=== PATIENT | female | born 1935 | race Caucasian/White ===

== ENCOUNTER 2016-07-18 23:01 | Emergency (ER) | payer MEDICARE, OTHER ==
--- NOTE | ~2016-07-18 | ER ---
PATIENT'S NAME: INDRA OLIVA [facility] AGE: 81 Y [address] ROOM: [place] [address] LOCATION: [facility] ADMIT DATE: 07/18/2016 ER/Outpatient Report DISCHARGE DATE: FAMILY PHYSICIAN: Physician, Unknown ATTENDING PHYSICIAN: Dalton Cheng Admission date and time are documented on the medical record. I saw the patient at 2300 hours. CHIEF COMPLAINT: Ground-level fall. HISTORY OF PRESENT ILLNESS: This patient is an 81-year-old female who lives at [facility]. She had a ground-level fall. She caught her wrist on the counter, fell, and landed on her buttocks. She has a skin tear to her right forearm. No pain in her pelvis or in her low back. No other injuries. The patient is awake, alert, and responsive on arrival to the emergency room. The patient came in by via ambulance. Brought in by paramedics. HOME MEDICATIONS: See attached medication list. ALLERGIES: CODEINE, SULFA, THIAZIDE, SPIRONOLACTONE, HYDROCHLOROTHIAZIDE, SHELLFISH, FISH, AND WHOLE EGGS. SOCIAL HISTORY: Nonsmoker, nondrinker. SIGNIFICANT PAST MEDICAL HISTORY: Hypertension, chronic kidney disease, dementia, depression, edema, and gastroesophageal reflux. OPERATIONS: Unknown. REVIEW OF SYSTEMS: All systems reviewed by me are negative with the exception of those discussed in the history of present illness. PHYSICAL EXAMINATION: VITAL SIGNS: Temperature 98.6, tympanic, pulse 68, respirations 16, blood pressure 188/76, and O2 sat on room air is 98%. HEAD: Normocephalic. No abrasion, contusion, laceration, or swelling of the PATIENT'S NAME: INDRA OLIVA [facility] AGE: 81 Y [address] ROOM: [place] [address] LOCATION: [facility] ADMIT DATE: 07/18/2016 ER/Outpatient Report DISCHARGE DATE: FAMILY PHYSICIAN: Physician, Unknown ATTENDING PHYSICIAN: Dalton Cheng scalp or face. EYES: Extraocular muscles are intact. PERRL. EARS, NOSE, AND THROAT: Clear. Mucous membranes moist. NECK: Negative. SPINE: Negative. LUNGS: Clear. HEART: Regular. Pulses palpable. ABDOMEN: Flat, soft, nondistended, nontender. Good bowel tones. PELVIS: Stable. EXTREMITIES: The patient has about a 5-6 cm skin tear right ventral midforearm. I did go ahead and cleanse the area with normal saline. I approximated the skin edges and glued them closed. The patient tolerated the procedure well. No other injuries. She has multiple bruises of her extremities. These mostly are all old. NEURO: Intact. SKIN: Clear other than the skin tear. LABORATORY DATA: X-ray of the lumbar spine shows scoliosis, degenerative changes, no acute fracture noted. She did have some spondylolisthesis of L3 on L4. Pelvis x- ray showed no fracture. We will review all plain films with the radiologist. IMPRESSION: Ground-level fall with about 5-6 cm dorsal skin tear in the midright forearm closed with wound adhesive. There was no evidence of acute fracture of the lumbosacral spine or pelvis. PLAN: The patient's wound was cleansed and dressed. The patient dismissed home to [place]. Continue all present home medications and care. Follow up with personal physician as needed. MD SULEMAN RUSHING/modl /[id number] d: 07/19/16 0130 t: 07/19/16 0342, OUTPATIENT REPORT
== END 2016-07-19 01:22 | disposition disaster alternative care site (69) ==
LOC: GACC 23:01
PROC: 0HQDXZZ Repair Right Lower Arm Skin, External Approach (ICD-10-PCS; principal; 2016-07-18)
DX: S51.811A Laceration without foreign body of right forearm, initial encounter (principal); I12.9 Hypertensive chronic kidney disease with stage 1 through stage 4 chronic kidney disease, or unspecified chronic kidney disease; N18.9 Chronic kidney disease, unspecified; F32.9 Major depressive disorder, single episode, unspecified; K21.9 Gastro-esophageal reflux disease without esophagitis; Z88.2 Allergy status to sulfonamides; Z88.8 Allergy status to other drugs, medicaments and biological substances; Z91.013 Allergy to seafood; Z79.82 Long term (current) use of aspirin; Z79.899 Other long term (current) drug therapy; W01.0XXA Fall on same level from slipping, tripping and stumbling without subsequent striking against object, initial encounter

== ENCOUNTER → 2016-07-18 | Outpatient (CLI) | payer MEDICARE, OTHER ==
[~2016-07-18] MED LIST: ALOE VESTA141 GM TOP; AMOXICILLIN500 MG PO; ARTIFICIAL TEAR15 ML OPHTH; ASPIRIN LO-DOSE81 MG PO; BIAXIN250 MG PO; CETAPHIL GENTL TOP; COLCHICINE0.6 MG PO; ENSURE CLEAR PO; HYDROCODON-ACE1 EAC4 PO; HYDROCORT 1/2 %30 GM TOP; IMODIUM2 MG PO; LASIX40 MG PO; LEVOTHROID(SYN75 MCG PO; LOTRIMIN AF24 GM TOP; MILK OF MA400 MG/5 M PO; MIRALAX17 GM PO; NORVASC2.5 MG PO; PRILOSEC20 MG PO; PRISTIQ ER100 MG PO; RENVELA800 MG PO; ROBITUSSIN DM120 ML PO; TRIACET 0.1 CRE15 GM TOP; TYLENOL325 MG PO; ZYLOPRIM300 MG PO; ZYPREXA5 MG PO
== END | disposition disaster alternative care site (69) ==
LOC: GAMB 22:41
DX: S59.911A Unspecified injury of right forearm, initial encounter (principal); S51.811A Laceration without foreign body of right forearm, initial encounter; I10 Essential (primary) hypertension; N18.2 Chronic kidney disease, stage 2 (mild); F03.90 Unspecified dementia, unspecified severity, without behavioral disturbance, psychotic disturbance, mood disturbance, and anxiety; Z79.82 Long term (current) use of aspirin; Z79.899 Other long term (current) drug therapy; Z88.1 Allergy status to other antibiotic agents; Z88.6 Allergy status to analgesic agent; Z88.8 Allergy status to other drugs, medicaments and biological substances; W19.XXXA Unspecified fall, initial encounter
CPT/HCPCS: A0425; A0429

== ENCOUNTER 2016-09-23 10:29 | Inpatient (IN) | payer MEDICARE, OTHER, MEDICAID ==
[~2016-09-23] VITALS: Ht 157.5 cm; Wt 60.9 kg
--- NOTE | ~2016-09-23 | ER ---
PATIENT'S NAME: INDRA OLIVA [facility] AGE: 81 Y [address] ROOM: [place] [address] LOCATION: [facility] ADMIT DATE: 09/23/2016 ER/Outpatient Report DISCHARGE DATE: FAMILY PHYSICIAN: Misael Land MD ATTENDING PHYSICIAN: Dylan Plascencia Admission date and time documented on the medical record. I saw the patient at 1045 hours. CHIEF COMPLAINT: Ground-level fall. HISTORY OF PRESENT ILLNESS: This patient is an 81-year-old female who is a resident of [facility]. She had a ground level fall at 0940 hours injuring her left upper leg. The patient was brought to the emergency room by paramedics via ambulance for evaluation. The patient is in Roca's traction. The patient is awake. 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 She denies any head or neck pain. No back pain. No back or spine pain. No chest pain or shortness of breath. No abdominal pain. She denies being nauseated or vomiting or have any diarrhea. She does not hurt any place except for left upper leg. She does have a history of dementia, depression, and anxiety. Does have a history of hypothyroidism, but no diabetes. No history of CVA, TIA, or seizure disorder. She has chronic kidney disease and hypertension. No recent coughs, colds, or flus. HOME MEDICATIONS: See attached medication list. ALLERGIES: CODEINE, SULFA, HYDROCHLOROTHIAZIDE, SPIRONOLACTONE, SHELLFISH, FISH, AND EGGS. SOCIAL HISTORY: Nonsmoker and nondrinker. SIGNIFICANT PAST MEDICAL HISTORY: Hypertension, chronic kidney disease, dementia, depression, anxiety, gastroesophageal reflux, pneumonia, recurrent urinary tract infections, dyslipidemia, hypothyroidism, and right shoulder dislocation. OPERATIONS: AV fistula placement, closed reduction of right shoulder dislocation, cystoscopy with stent placement, transurethral resection of bladder lesion, PATIENT'S NAME: INDRA OLIVA [facility] AGE: 81 Y [address] ROOM: [place] [address] LOCATION: [facility] ADMIT DATE: 09/23/2016 ER/Outpatient Report DISCHARGE DATE: FAMILY PHYSICIAN: Misael Land MD ATTENDING PHYSICIAN: Dylan Plascencia breast biopsy, bilateral total knee arthroplasty, and bilateral cataract extraction. REVIEW OF SYSTEMS: All systems reviewed by me are negative with the exception of those discussed in the history of present illness. PHYSICAL EXAMINATION: VITAL SIGNS: Temperature 98.2, orally; pulse 82, regular; respirations 20; blood pressure 187/75; and O2 saturation on room air is 96%. HEENT: Head: Normocephalic. No abrasion, contusion, laceration, swelling of scalp or face. Eyes: Pupils equal, round, and reactive to light. Ears, Nose, Throat: Clear. Mucous membranes moist. NECK: Negative. SPINE: Negative. LUNGS: Clear. Good air flow. No rales, rhonchi, or wheezes. HEART: Regular. Pulses are palpable. ABDOMEN: Flat, soft, nondistended, and nontender. Good bowel tones. No organomegaly or abnormal masses palpable. EXTREMITIES: Moves all 4 extremities except for her left leg. She is in Roca's traction. No open wounds. Does have some shortening of the left lower extremity. NEUROVASCULAR: Intact. The patient is demented. She does not know where she is or what time or what the date is. She does not know her age or date. SKIN: Clear. IMAGING DATA: Chest x-ray showed no acute infiltrate or changes. Pelvic x-ray showed no fracture. Left femur shows a distal comminuted spiral fracture of the left femur. We will review x-ray with Radiology and Orthopedic Surgery. IMPRESSION: 1. Ground-level fall with a distal left femur fracture. 2. Hypertension. 3. Dementia. 4. Chronic kidney disease. 5. Depression and anxiety. 6. Dyslipidemia. 7. Hypothyroidism. 8. History of recurrent urinary tract infections. PLAN: Discussed the patient with Dr. Plascencia, orthopedic surgeon. The patient will be admitted to the hospital by Hospitalist for further operative intervention, correction, and repair per Dr. Plascencia. PATIENT'S NAME: INDRA OLIVA [facility] AGE: 81 Y [address] ROOM: [id number] [place] [address] LOCATION: [facility] ADMIT DATE: 09/23/2016 ER/Outpatient Report DISCHARGE DATE: FAMILY PHYSICIAN: Misael Land MD ATTENDING PHYSICIAN: Dylan Plascencia MD SULEMAN RUSHING/haroon /[id number] d: 09/23/16 1856 t: 09/24/16 0610, OUTPATIENT REPORT
--- NOTE | ~2016-09-23 | DS ---
PATIENT'S NAME: INDRA OLIVA [facility] AGE: 81 Y [address] ROOM: [address] [place], [place] [address] LOCATION: [facility] ADMIT DATE: 09/23/2016 Discharge Summary DISCHARGE DATE: 09/30/2016 FAMILY PHYSICIAN: Misael Land MD ATTENDING PHYSICIAN: Dylan Plascencia ADMITTING DIAGNOSIS: Supracondylar left femur fracture above a total knee replacement and below a cemented total hip arthroplasty. PROCEDURE: ORIF with a lateral plate. HOSPITAL COURSE: The patient was admitted after a fall. She was admitted through the ER after being unable to bear weight on her left leg. X-rays revealed a supracondylar femur fracture above a total knee arthroplasty and below a total hip arthroplasty. She was admitted to the Hospitalist Service for preoperative risk evaluation and medical management. When the patient was deemed stable, she was taken to the operating room, where the aforementioned ORIF was performed. Preoperatively, she was typed, crossed, and transfused 1 unit of packed red blood cells for a hemoglobin of 6.7. She was also found to have a urinary tract infection. This was treated with doxycycline 100 mg p.o. b.i.d. for 3 days. Her comorbidities include stage 4 chronic kidney disease, dementia with agitation. Postop day #1, she was afebrile, neurovascular was intact to the operative left foot. She received a 2nd unit of packed red blood cells. Postop day #2, hemoglobin was 7.6 after transfusion. Keep the knee immobilizer on while up and while resting. Urine cultures were positive for MRSA. Postop day #3, wounds were healing nicely, C[employer] was intact to the operative foot. She continued to be moderately demented; although, fairly cooperative. She had some mild hyponatremia that was treated with fluids. Hernandez was taken out on postop day #3. She continued on her doxycycline for her MRSA urinary tract infection. Hemoglobin on postop day #4 was in the 9.0 and arrangements were made for the patient to be transferred to senior care. She was placed on MRSA clearance protocol and transferred to [facility] on postop day #6. DISCHARGE INSTRUCTIONS: Nonweightbearing, left leg, continue prehospitalization medication regimen, and follow up with myself in 3 weeks, bandar out postop day #10, MRSA swab on 10/04/2016, if negative repeat on 10/09/2016, daily dressing changes, 4x4, gauze, and tape. DEMTERIO NIX FOR MD BONIFACIO CARRILLO/haroon PATIENT'S NAME: INDRA OLIVA [facility] AGE: 81 Y [address] ROOM: [place] [address] LOCATION: [facility] ADMIT DATE: 09/23/2016 Discharge Summary DISCHARGE DATE: 09/30/2016 FAMILY PHYSICIAN: Misael Land MD ATTENDING PHYSICIAN: Dylan Plascencia /[id number] d: 10/05/16 0429 t: 10/13/16 1021, DISCHARGE SUMMARY
--- NOTE | ~2016-09-23 | CON ---
[facility] 81 Y [address] ROOM: [place] [id number] LOCATION: G3 ADMIT DATE: 09/23/2016 Consultation DISCHARGE DATE: FAMILY PHYSICIAN: Misael Land MD ATTENDING PHYSICIAN: Dylan Plascencia DATE OF CONSULTATION: 09/23/2016 REFERRING PHYSICIAN: Livan Snow MD The patient was seen and examined on 09/23/2016. CHIEF COMPLAINT: Ground-level fall with supracondylar fracture of left femur above a total knee and below a hip arthroplasty. HISTORY OF PRESENT ILLNESS: This 81-year-old female with dementia fell at [facility]. She complained of pain. X-rays in the emergency room, after being brought in by ambulance, demonstrate supracondylar fracture of the left femur. There were no other injuries. No loss of consciousness, neck pain, blackout spells, or dizziness. She has no history of CVA, TIA, or seizures. No recent infections. ALLERGIES: CODEINE, SULFA, HYDROCHLOROTHIAZIDE, SPIRONOLACTONE, SHELLFISH, AND EGGS. SOCIAL HISTORY: No smoking or alcohol use. PAST MEDICAL HISTORY: Hypertension, chronic kidney disease, dementia, depression, anxiety, gastroesophageal reflux, pneumonia, urinary tract infections, and dyslipidemia. OPERATIONS: AV fistula, closed reduction of right shoulder, cystoscopy with stent placement, resection of bladder lesion, breast biopsy, bilateral total knee arthroplasties, and right hip arthroplasty. REVIEW OF SYSTEMS: Poor memory. No chest pain or trouble breathing. Constipation, but no nausea or vomiting. No dysuria, hematuria, or hesitancy. Progressive deterioration in mental status with loss of memory. No skin changes or malaise. No weight loss or gain. PAT[facility] AGE: 81 Y [address] ROOM: [address] [address] LOCATION: [facility] ADMIT DATE: 09/23/2016 Consultation DISCHARGE DATE: FAMILY PHYSICIAN: Misael Land MD ATTENDING PHYSICIAN: Dylan Plascencia PHYSICAL EXAMINATION: GENERAL: She is confused. VITAL SIGNS: Temperature is 98, pulse 82 and regular, respirations 18, blood pressure 184/74, and O2 saturation is 96% on room air. HEENT: Atraumatic, normocephalic. PERRL, EOMI. TMs clear. Throat clear. NECK: Supple and nontender. SPINE: Nontender. CHEST: Clear to auscultation. No rales. HEART: Regular rhythm. ABDOMEN: Soft and nontender without masses. Good bowel sounds. EXTREMITIES: Moves all 4 extremities except for her left leg. No pain in the right leg or right arm. She is tender about the left distal femur. She is able to dorsi and plantarflex her toes. Pulses are intact bilaterally. No edema. SKIN: Intact. IMAGING STUDIES: Left femur shows a supracondylar fracture, spiral fracture of the left femur with some displacement. IMPRESSION: 1. Supracondylar fracture, left femur, from ground-level fall. 2. Hypertension. 3. Dementia. 4. Chronic kidney disease. 5. Depression and anxiety. 6. Dyslipidemia. 7. Hypothyroidism. 8. History of urinary tract infections. PLAN: Preoperative medical clearance followed by ORIF of supracondylar fracture of left femur above a total knee and below a total hip. Plate and screws, possibly cables will be used. I discussed details of the surgical procedure, risks, benefits, and alternatives, emphasizing anesthetic, neurovascular, and infectious complications. The patient and family understand and desire to proceed with surgery as planned. MD JORJE DAY/haroon PATIENT'S NAME: INDRA OLIVA [facility] AGE: 81 Y [address] ROOM: [place] [address] LOCATION: [facility] ADMIT DATE: 09/23/2016 Consultation DISCHARGE DATE: FAMILY PHYSICIAN: Misael Land MD ATTENDING PHYSICIAN: Dylan Plascencia /[id number] d: 09/24/16 1221 t: 09/24/161930, CONSULTATION REPORT
--- NOTE | ~2016-09-23 | HP ---
PATIENT'S NAME: INDRA OLIVA [facility] AGE: 81 Y [address] ROOM: [address] [address] LOCATION: G3 ADMIT DATE: 09/23/2016 History & Physical DISCHARGE DATE: FAMILY PHYSICIAN: Misael Land MD ATTENDING PHYSICIAN: Dylan Plascencia DATE OF SERVICE: 09/23/2016 CHIEF COMPLAINT/REASON FOR CONSULTATION: Preoperative evaluation for left distal femur fracture. HISTORY OF PRESENTING ILLNESS: This 81-year-old white female with previous history of mild dementia, frequent falls, and chronic kidney disease, stage 4, was brought to [facility] today after a fall, which occurred at the nursing facility where she resides. Details of the fall are unclear, but she apparently lost her balance and suffered a ground level fall, falling onto her left side. She had pain and obvious deformity in the left leg. She was brought by ambulance to the emergency room where x-rays demonstrated a distal femur fracture. Dr. Plascencia consulted and recommended hospitalization for operative management. On my evaluation, she is awake, lying in bed, and complains of pain in the left leg. She states it is bearable as long as it is not moved. She does complain of a little bit of stiffness in her neck but denies monik pain. She does recall the fall but does not think that she injured anything else. She denies headache, pain, denies dizziness, or lightheadedness. She denies chest pain, palpitations, racing heartbeat, or abdominal pain. No significant shortness of breath or orthopnea. She has been eating and drinking normally as of late. She can not recall the last time that she ate, however. She thinks that her stools have been regular. Denies dysuria or urgency but does have urinary incontinence. She denies numbness or tingling in her extremities or any associated physical or constitutional complaints. ALLERGIES: SEAFOOD. ILLNESSES: 1. Chronic kidney disease, stage 4-5 (she previously required hemodialysis but is no longer getting dialysis. 2. Dementia, mild. 3. Essential hypertension. 4. Hyperlipidemia. 5. Hypothyroidism. 6. Recurrent urinary tract infection. PATIENT'S NAME: INDRA OLIVA [facility] AGE: 81 Y [address] ROOM: [address] [address] LOCATION: [facility] ADMIT DATE: 09/23/2016 History & Physical DISCHARGE DATE: FAMILY PHYSICIAN: Misael Land MD ATTENDING PHYSICIAN: Dylan Plascencia CURRENT MEDICATIONS: 1. Acetaminophen 650 mg p.o. q.6 hours p.r.n. pain or fever. 2. Allopurinol 300 mg p.o. daily. 3. Amlodipine 2.5 mg p.o. daily. 4. Aspirin 81 mg p.o. daily. 5. Amoxicillin 2 g p.o. prior to dental procedures. 6. Clarithromycin 250 mg p.o. q.p.m. 7. Lotrimin AF 24 g applied topically daily. 8. Colchicine 0.6 mg p.o. q.7 days. 9. Pristiq ER 100 mg p.o. daily. 10. Lasix 40 mg p.o. b.i.d. 11. Robitussin DM p.r.n. cough. 12. [place] 5/325 one tablet p.o. q.6 hours p.r.n. pain and scheduled t.i.d. 13. Hydrocortisone rectal cream applied topically b.i.d. 14. Levothyroxine 75 mcg p.o. daily. 15. Loperamide 2 mg p.o. daily p.r.n. 16. Milk of magnesia 30 mL p.o. daily p.r.n. 17. Aloe [place] apply topically b.i.d. 18. Ensure 8 ounces t.i.d. 19. Zyprexa 5 mg p.o. q.h.s. 20. Omeprazole 20 mg p.o. daily. 21. Cetaphil topical applied daily. 22. MiraLAX 17 g p.o. daily. 23. Artificial tears t.i.d. 24. Renvela 800 mg p.o. t.i.d. 25. Triamcinolone cream apply topically b.i.d. FAMILY HISTORY: Significant for bright's disease in her father. Mother of congestive heart failure at the age of 91. SOCIAL HISTORY: She is and lives at [facility] in [place]. She is a lifelong nonsmoker. There is no significant history of alcohol use. REVIEW OF SYSTEMS: As per HPI. All other organ systems are reviewed in a limited fashion and are negative. OBJECTIVE: VITAL SIGNS: Temperature 97.6, pulse 83, respirations 16, blood pressure 134/71. GENERAL: She is frail, mildly ill appearing, lying in the bed, in no acute distress. She is oriented to self only. SKIN: Supple, pale, warm, dry. There are no obvious rashes. PATIENT'S NAME: INDRA OLIVA [facility] AGE: 81 Y [address] ROOM: [address] [address] LOCATION: [facility] ADMIT DATE: 09/23/2016 History & Physical DISCHARGE DATE: FAMILY PHYSICIAN: Misael Land MD ATTENDING PHYSICIAN: Dylan Plascencia HEENT: Otherwise, normocephalic. Sclerae nonicteric but mildly injected. Pupils are equal and round, slow to react to light. Extraocular movements appear intact. Nasal turbinates normal in appearance. Oropharynx clear. Mucous membranes are pink and moist. NECK: Supple. No masses or adenopathy. No thyromegaly. No obvious JVD in the horizontal position. CHEST: Chest wall is symmetrical. HEART: Regular with occasional extrasystoles. There is a grade 2/6 systolic ejection murmur. LUNGS: Diminished at the bases, coarse, but no crackles or wheezes are heard. ABDOMEN: Soft, protuberant, nontender. Bowel sounds present. No masses or hepatosplenomegaly. and RECTAL: Not done. EXTREMITIES: Display trace pitting edema. No cyanosis. There is obvious deformity about the left proximal leg with swelling about the mid and distal thigh and obvious shortening deformity on that side. NEUROLOGICAL: Mentation is quite slowed, but there are no focal deficits. LABORATORY AND X-RAY DATA: A 12-lead EKG shows a sinus rhythm without any acute abnormalities. Chest x- ray shows no acute cardiopulmonary abnormalities. CBC showed a white blood cell count 10.4, hemoglobin is 12.2, hematocrit 38.1, platelets 167. Chemistries reveal BUN and creatinine of 57 and 2.5 respectively, sodium and potassium of 142 and 4.3, chloride and CO2 are 106 and 26, calcium is 8.5. AST and ALT of 27 and 24, bilirubin is 0.3. Glucose 125. A proBNP was 939. Cardiac enzymes include a CPK of 95, CK-MB 2.1, troponin I of less than 0.04. Urinalysis shows 5-10 wbc's, 0 to 2 rbc's, few bacteria with many clumps, leukocyte esterase is present, nitrites are negative. ASSESSMENT AND PLAN: 1. Chronic kidney disease, stage 4, stable. Her GFR is 18. Agree with careful IV fluid hydration therapy. We will continue the current rate to total of 1 L and then reduce it to a TKO rate thereafter. We will follow her fluid volume balance closely. Avoid nephrotoxic insults including contrast media, nonsteroidal anti-inflammatory drugs, and LUZ inhibitors. We will repeat renal panel again in the morning. 2. Essential hypertension. Currently adequately controlled. We will monitor the trend and make adjustments as necessary. 3. Gait instability with frequent falls. She is at high risk for recurrent falls. Postoperatively, we will plan restorative care including physical therapy, occupational therapy for strengthening and rehabilitation but observe strict fall precautions. 4. Left distal femur fracture status post fall with angulation and comminution. Provide supportive cares and symptomatic measures. Operative repair is tentatively planned for tomorrow by Dr. Plascencia. I PATIENT'S NAME: INDRA OLIVA [facility] AGE: 81 Y [address] ROOM: [place] [address] LOCATION: [facility] ADMIT DATE: 09/23/2016 History & Physical DISCHARGE DATE: FAMILY PHYSICIAN: Misael Land MD ATTENDING PHYSICIAN: Dylan Plascencia see no absolute contraindications to proceed. We will await postoperative recommendations. 5. Dementia, mild, with agitated features. Historically controlled on the current medication regimen. We will continue her home regimen and make adjustments if necessary. 6. Pyuria with history of recurrent urinary tract infections. She has been maintained on clarithromycin for some period of time. We will obtain a catheterized specimen for culture here and follow up on that when the results are known. 7. Hypothyroidism. Adequately replaced. Continue with her home regimen. 8. Chronic constipation. Encourage a moderately aggressive bowel regimen. 9. Deep venous thrombosis prophylaxis. We will follow the VTE protocol. MD SUDHA JOHNSON/modl /[id number] D: [id number] T: [id number] HISTORY & PHYSICAL
--- NOTE | ~2016-09-23 | OR ---
PATIENT'S NAME: INDRA OLIVA [facility] AGE: 81 Y [address] ROOM: [address] [address] LOCATION: [facility] [place] AD[place] DATE: 09/23/2016 OR/Procedure Report DISCHARGE DATE: FAMILY PHYSICIAN: Misael Land MD ATTENDING PHYSICIAN: Dylan Plascencia SURGEON: Dylan Plascencia MD ADDRESSOGRAPH OPERATOR: DEMETRIO Black. DATE OF PROCEDURE: 09/24/2016 PREOPERATIVE DIAGNOSES: Supracondylar left femur fracture above total knee replacement and below cemented total hip replacement. POSTOPERATIVE DIAGNOSES: Supracondylar left femur fracture above total knee replacement and below cemented total hip replacement. PROCEDURE: Open reduction and internal fixation. ANESTHESIA: General LMA. INDICATIONS: This is an 81-year-old female with chronic kidney disease stage IV, hypertension, dementia, pyuria, hypothyroidism who fell yesterday sustaining a supracondylar left femur fracture. DESCRIPTION OF PROCEDURE: The patient was brought to the operating room and when a satisfactory general anesthesia had been established, her left lower extremity was prepped and draped in an aseptic manner. A straight lateral incision was made over the knee and carried down through the subcutaneous fat. The fascia rochelle was divided and the knee capsule opened and the lateral aspect of her total knee prosthesis and femoral component visualized. The fracture was reduced with traction and a 12 hole periarticular locking plate was pushed up the lateral aspect of the femur. It was centered on the distal femur and a guidepin drilled through the center hole of the distal cluster of the locking holes. The plate was then positioned and the #12 hole was identified and skin incision made and the locking sleeve inserted into the plate and a guidepin drilled into the lateral femur until it struck the stem of the femoral prosthesis. A smooth-headed 4.5 cortical screw was then placed into one of the distal cluster holes to pull the plate onto the bone. An anterior butterfly fragment was reduced to allow the plate to be pulled against the lateral cortex. At screw hole #9, a 4.5 cortical screw was placed percutaneously to hold the plate down against the bone. Reduction appeared to be satisfactory with perhaps a little valgus in it. This was accepted. The distal cluster of screw holes were then drilled, measured, and filled with locking screws. A total of 6 locking screws were placed eventually. Proximally, there were two 12 mm unicortical screws in 12 and 11, a bicortical locking screw in 10, the 4.5 cortical screw in 9, and a locking screw in hole PATIENT'S NAME: INDRA OLIVA [facility] AGE: 81 Y [address] ROOM: [place] [address] LOCATION: [facility] [place] ADMIT DATE: 09/23/2016 OR/Procedure Report DISCHARGE DATE: FAMILY PHYSICIAN: Misael Land MD ATTENDING PHYSICIAN: Dylan Plascencia #7. Position of the implants was checked with a C-arm and accepted. The wound was irrigated copiously with saline and the fascia rochelle and capsule closed with a running 0 Vicryl. The remainder of the closure was by DEMETRIO Rahman, to close the subcutaneous fat with running 2-0 Vicryl and the skin with skin bandar. Dressings and a knee immobilizer were applied. The patient was awakened and sent to the recovery area, having tolerated the procedure well. MD JASIEL CARRILLO/mignonl /[id number] d: 09/25/16 0116 t: 09/29/16 1010, OPERATIVE SUMMARY
--- NOTE | ~2016-09-23 | HP ---
PATIENT'S NAME: INDRA OLIVA [facility] AGE: 81 Y [address] ROOM: [place] [address] LOCATION: [facility] ADMIT DATE: 09/23/2016 History & Physical DISCHARGE DATE: FAMILY PHYSICIAN: Misael Land MD ATTENDING PHYSICIAN: Dylan Plascencia DATE OF SERVICE: CHIEF COMPLAINT/HISTORY OF PRESENT ILLNESS: This is an 81-year-old female who lives in assisted living, here in [place]. She fell yesterday, , 09/23/2016, sustaining an injury to her left lower extremity, specifically her left femur. She has bilateral total knee replacements and has a left hybrid total hip replacement, so the fracture is supracondylar fracture in between the two prostheses. ALLERGIES: SEAFOOD. MEDICATIONS: 1. Tylenol. 2. Allopurinol. 3. Amlodipine. 4. Aspirin. 5. Amoxicillin. 6. Clarithromycin. 7. Lotrimin topically. 8. Colchicine. 9. Pristiq ER. 10. Lasix. 11. Robitussin DM. 12. Riddle 5/325. 13. Hydrocortisone rectal cream. 14. Levothyroxine 75 mcg daily. 15. Loperamide. 16. Milk of magnesia. 17. [place] topically. 18. Ensure. 19. Zyprexa. 20. Omeprazole. 21. Cetaphil topical. 22. MiraLAX. 23. Artificial tears. 24. Renvela. 25. Triamcinolone cream topically. [facility] AGE: 81 Y [address] ROOM: [place] [address] LOCATION: [facility] ADMIT DATE: 09/23/2016 History & Physical DISCHARGE DATE: FAMILY PHYSICIAN: Misael Land MD ATTENDING PHYSICIAN: Dylan Plascencia ILLNESSES: 1. Chronic kidney disease stage 4/5. In the past, she has been on hemodialysis and has been followed by Dr. Land. 2. Dementia. 3. Essential hypertension. 4. Hyperlipidemia. 5. Hypothyroidism. 6. Recurrent urinary tract infections. OPERATIONS: She has had bilateral total knee replacements and a has left total hip replacement. She has also had AV fistula placement in the past, closed reduction of the right shoulder dislocation, cystoscopy with stent placement and transurethral resection of bladder lesion, breast biopsy, and bilateral cataract extraction. FAMILY HISTORY: The patient's father had Bright's disease and her mother of congestive heart failure at the age of 91. HABITS: She denies use or abuse of tobacco or alcohol. REVIEW OF SYSTEMS: PSYCHOLOGIC: History of dementia. LUNGS: Denies shortness of breath. CARDIOVASCULAR: Denies chest pain. ABDOMEN: History of chronic constipation. NEUROPSYCHIATRIC: Dementia. MUSCULOSKELETAL: History of degenerative joint disease and total joint replacements. : History of chronic renal failure, stage 4, no longer on hemodialysis. PHYSICAL EXAMINATION: GENERAL: This is a well-developed, elderly female, who is cooperative and somewhat alert. She does appear to understand her fracture and the disease process and the need for ORIF. VITAL SIGNS: Temperature 97.6, pulse 83, respirations 16, blood pressure 134/74. HEENT: Head is normocephalic and atraumatic. LUNGS: Clear. HEART: Regular. ABDOMEN: Soft, nontender. EXTREMITIES: She has pain on any attempts to move her left lower extremity. PULSES: She has good dorsalis pedis pulse in her left lower extremity. PATIENT'S NAME: INDRA OLIVA [facility] AGE: 81 Y [address] ROOM: [address] [address] LOCATION: [facility] ADMIT DATE: 09/23/2016 History & Physical DISCHARGE DATE: FAMILY PHYSICIAN: Misael Land MD ATTENDING PHYSICIAN: Dylan Plascencia NEUROLOGICAL: She extends her ankle, foot, and toes on request. RADIOGRAPHS: Radiographs show supracondylar femur fracture above, total knee replacement below, hybrid total hip replacement. ASSESSMENT: 1. Periprosthetic left supracondylar femur fracture. 2. Chronic kidney disease. 3. High blood pressure. 4. Dementia. 5. Recurrent urinary tract infections. 6. Hypothyroidism. PLAN: The patient will be taken to the operating room for ORIF of her femur fracture. The procedure, its risks, benefits, and alternatives were discussed with the patient, who appears to understand and requests to proceed. MD JASIEL CARRILLO/modl /[id number]: [id number] T: [id number] HISTORY & PHYSICAL
[2016-09-23 13:00] LABS: BASOPHIL % 0.3 %; EOSINOPHIL # 0.1 K/uL (0.0-0.5); EOSINOPHIL % 1.3 %; HEMATOCRIT 38.1 % (30.0-46.0); HEMOGLOBIN 12.2 g/dL (10.0-15.0); IMMATURE GRANULOCYTE % 0.4 %; LYMPHOCYTE # 0.8 K/uL (0.8-4.0); LYMPHOCYTE % 7.9 %; MCH 33.9 pg (27.0-34.0); MCV 105.8 fl (83.0-98.0); MONOCYTE # 0.5 K/uL (0.0-1.0); MONOCYTE % 5.2 %; MPV 9.9 fl (9.4-12.4); NEUTROPHIL # (ANC) 8.8 K/uL (1.8-7.8); NEUTROPHIL % 84.9 %; NRBC % 0 /100WBC (0-0.00); PLATELET COUNT 167 K/uL (150-450); RDW-CV 13.2 % (11.9-14.6); WBC 10.4 K/uL (4.0-11.0)
[2016-09-23 13:06] LABS: INR - (THERAPEUTIC) 0.95 (0.92-1.07); PTT 23 SECONDS (25-32)
[2016-09-23 13:13] LABS: BILIRUBIN URINE NEGATIVE (NEGATIVE); BLOOD URINE 25 /UL (NEGATIVE); COLOR URINE YELLOW (YELLOW); GLUCOSE URINE NEGATIVE (NEGATIVE); KETONE URINE NEGATIVE (NEGATIVE); LEUKOCYTES URINE 500 /UL (NEGATIVE); NITRITE URINE NEGATIVE (NEGATIVE); PROTEIN URINE 30 mg/dL (NEGATIVE); TURBIDITY URINE 2+ (CLEAR); UROBILINOGEN URINE NORMAL (NORMAL)
[2016-09-23 13:15] LABS: ALBUMIN 3.3 gm/dL (3.5-5.0); ALK PHOS 155 IU/L (33-138); ALT 24 IU/L (12-78); ANION GAP 14.3 (10.0-19.0); AST 27 IU/L (10-40); CALCIUM 8.5 mg/dL (8.5-10.5); CHLORIDE 106 mMol/L (96-110); CO2 26 mMol/L (22-32); CPK 95 IU/L (21-215); CREATININE 2.5 mg/dL (0.5-1.1); ESTIMATED GFR (MDRD EQUATION) 18; POTASSIUM 4.3 mMol/L (3.7-5.1); SODIUM 142 mMol/L (135-145); TOTAL PROTEIN 6.3 g/dL (6.0-8.4)
[2016-09-23 13:19] LABS: BLOOD UREA NITROGEN 57 mg/dL (6-24); TOTAL BILIRUBIN 0.3 mg/dL (0.0-1.5)
[2016-09-23 13:19] LABS: BACTERIA URINE FEW (NEGATIVE); EPITHELIAL URINE 0-2 #/HPF (NEGATIVE); RBC URINE 0-2 #/HPF (NEGATIVE)
[2016-09-23 13:20] LABS: WBC CLUMPS URINE MANY (NEGATIVE)
[2016-09-23] MEDS ORDERED: PRILOSEC20 MG PO (13:46)
[2016-09-23] MEDS ORDERED: LEVOTHROID(SYN75 MCG PO (13:46)
[2016-09-23] MEDS ORDERED: ZYLOPRIM300 MG PO (13:47)
[2016-09-23] MEDS ORDERED: ASPIRIN LO-DOSE81 MG PO (13:47)
[2016-09-23] MEDS ORDERED: PRISTIQ ER100 MG PO (13:47)
[2016-09-23] MEDS ORDERED: NORVASC2.5 MG PO (13:48)
[2016-09-23] MEDS ORDERED: RENVELA800 MG PO (13:48)
[2016-09-23] MEDS ORDERED: LASIX40 MG PO (13:50)
[2016-09-23] MEDS ORDERED: HYDROCODON-ACE1 EAC4 PO ×2 (13:51→14:05)
[2016-09-23] MEDS ORDERED: MIRALAX17 GM PO (13:51)
[2016-09-23] MEDS ORDERED: ARTIFICIAL TEAR15 ML OPHTH (13:52)
[2016-09-23] MEDS ORDERED: CETAPHIL GENTL TOP (13:57)
[2016-09-23] MEDS ORDERED: LOTRIMIN AF24 GM TOP (13:58)
[2016-09-23] MEDS ORDERED: BIAXIN250 MG PO (13:59)
[2016-09-23] MEDS ORDERED: ENSURE CLEAR PO (13:59)
[2016-09-23] MEDS ORDERED: ZYPREXA5 MG PO (14:00)
[2016-09-23] MEDS ORDERED: COLCHICINE0.6 MG PO (14:00)
[2016-09-23] MEDS ORDERED: HYDROCORT 1/2 %30 GM TOP (14:01)
[2016-09-23] MEDS ORDERED: TYLENOL325 MG PO (14:02)
[2016-09-23] MEDS ORDERED: AMOXICILLIN500 MG PO (14:02)
[2016-09-23] MEDS ORDERED: MILK OF MA400 MG/5 M PO (14:03)
[2016-09-23] MEDS ORDERED: IMODIUM2 MG PO (14:03)
[2016-09-23] MEDS ORDERED: TRIACET 0.1 CRE15 GM TOP (14:05)
[2016-09-23] MEDS ORDERED: ALOE VESTA141 GM TOP (14:06)
[2016-09-23] MEDS ORDERED: ROBITUSSIN DM120 ML PO (14:07)
[2016-09-24 04:34] LABS: BASOPHIL % 0.2 %; EOSINOPHIL # 0.1 K/uL (0.0-0.5); EOSINOPHIL % 0.7 %; HEMOGLOBIN 9.6 g/dL (10.0-15.0); IMMATURE GRANULOCYTE % 0.5 %; LYMPHOCYTE # 1.3 K/uL (0.8-4.0); LYMPHOCYTE % 15.6 %; MCH 34.2 pg (27.0-34.0); MCHC 32.9 gm/dL (32.0-36.5); MCV 103.9 fl (83.0-98.0); MONOCYTE # 0.9 K/uL (0.0-1.0); MONOCYTE % 10.8 %; MPV 9.3 fl (9.4-12.4); NEUTROPHIL % 72.2 %; NRBC % 0 /100WBC (0-0.00); PLATELET COUNT 158 K/uL (150-450); RBC 2.81 M/uL (3.00-5.00); RDW-CV 13.2 % (11.9-14.6); WBC 8.3 K/uL (4.0-11.0)
[2016-09-24 04:36] LABS: HEMATOCRIT 29.2 % (30.0-46.0)
[2016-09-24 04:46] LABS: ALBUMIN 2.8 gm/dL (3.5-5.0); CALCIUM 8.1 mg/dL (8.5-10.5); CREATININE 2.2 mg/dL (0.5-1.1); PHOSPHORUS 4.2 mg/dL (2.5-4.9); POTASSIUM 4.5 mMol/L (3.7-5.1)
[2016-09-24 04:58] LABS: ANION GAP 13.5 (10.0-19.0)
[2016-09-25 04:53] LABS: BASOPHIL % 0.2 %; EOSINOPHIL % 0.1 %; IMMATURE GRANULOCYTE # 0.1 K/uL (0.0-0.3); IMMATURE GRANULOCYTE % 0.8 %; LYMPHOCYTE # 1.8 K/uL (0.8-4.0); LYMPHOCYTE % 16.6 %; MCV 106.2 fl (83.0-98.0); MONOCYTE # 1.1 K/uL (0.0-1.0); MONOCYTE % 10.3 %; NEUTROPHIL # (ANC) 7.6 K/uL (1.8-7.8); NRBC % 0.2 /100WBC (0-0.00); PLATELET COUNT 148 K/uL (150-450); RDW-CV 13.8 % (11.9-14.6); WBC 10.6 K/uL (4.0-11.0)
[2016-09-25 04:55] LABS: HEMATOCRIT 20.7 % (30.0-46.0); HEMOGLOBIN 6.7 g/dL (10.0-15.0); MCH 34.4 pg (27.0-34.0); MCHC 32.4 gm/dL (32.0-36.5); RBC 1.95 M/uL (3.00-5.00)
[2016-09-26 06:06] LABS: BASOPHIL % 0.4 %; EOSINOPHIL # 0.2 K/uL (0.0-0.5); EOSINOPHIL % 2.3 %; HEMATOCRIT 24.3 % (30.0-46.0); HEMOGLOBIN 7.6 g/dL (10.0-15.0); IMMATURE GRANULOCYTE % 0.6 %; LYMPHOCYTE # 1.6 K/uL (0.8-4.0); LYMPHOCYTE % 22.3 %; MCH 33.3 pg (27.0-34.0); MCHC 31.3 gm/dL (32.0-36.5); MCV 106.6 fl (83.0-98.0); MONOCYTE # 0.8 K/uL (0.0-1.0); MONOCYTE % 11.6 %; MPV 10.1 fl (9.4-12.4); NEUTROPHIL # (ANC) 4.4 K/uL (1.8-7.8); NEUTROPHIL % 62.8 %; NRBC % 0.4 /100WBC (0-0.00); PLATELET COUNT 118 K/uL (150-450); RBC 2.28 M/uL (3.00-5.00); RDW-CV 16.8 % (11.9-14.6)
[2016-09-26 06:19] LABS: ALBUMIN 2.3 gm/dL (3.5-5.0); ANION GAP 14.9 (10.0-19.0); CREATININE 1.9 mg/dL (0.5-1.1); PHOSPHORUS 3.1 mg/dL (2.5-4.9); POTASSIUM 3.9 mMol/L (3.7-5.1)
[2016-09-27 14:39] LABS: BASOPHIL % 0.3 %; EOSINOPHIL # 0.2 K/uL (0.0-0.5); EOSINOPHIL % 2.6 %; HEMATOCRIT 26.7 % (30.0-46.0); HEMOGLOBIN 8.8 g/dL (10.0-15.0); IMMATURE GRANULOCYTE % 0.3 %; LYMPHOCYTE # 1.6 K/uL (0.8-4.0); LYMPHOCYTE % 21.3 %; MCH 32.5 pg (27.0-34.0); MONOCYTE # 0.8 K/uL (0.0-1.0); MONOCYTE % 10.2 %; MPV 9.9 fl (9.4-12.4); NEUTROPHIL # (ANC) 4.8 K/uL (1.8-7.8); NEUTROPHIL % 65.3 %; NRBC % 0.4 /100WBC (0-0.00); RBC 2.71 M/uL (3.00-5.00); RDW-CV 18.2 % (11.9-14.6); WBC 7.3 K/uL (4.0-11.0)
[2016-09-27 14:43] LABS: MCV 98.5 fl (83.0-98.0); PLATELET COUNT 152 K/uL (150-450)
[2016-09-27 15:11] LABS: ANION GAP 13.7 (10.0-19.0); CALCIUM 8.1 mg/dL (8.5-10.5); CREATININE 1.9 mg/dL (0.5-1.1); MAGNESIUM 2.2 mg/dL (1.8-2.6); POTASSIUM 3.7 mEq/L (3.7-5.1)
[2016-09-28 05:36] LABS: HEMATOCRIT 27.1 % (30.0-46.0)
== END 2016-09-30 11:50 | DRG 481 ==
LOC: GACC 10:29 → G3N 12:02 → GMSU 09-25 17:03
PROVIDERS: Emergency Medicine; Family Medicine; Hospitalist; Physician Assistant; ADMIT Orthopaedic Surgery
PROC: 0QSC04Z Reposition Left Lower Femur with Internal Fixation Device, Open Approach (ICD-10-PCS; principal; 2016-09-24)
PROC: 30233N1 Transfusion of Nonautologous Red Blood Cells into Peripheral Vein, Percutaneous Approach (ICD-10-PCS; 2016-09-25)
PROC: 30233N1 Transfusion of Nonautologous Red Blood Cells into Peripheral Vein, Percutaneous Approach (ICD-10-PCS; 2016-09-26)
DX: S72.452A Displaced supracondylar fracture without intracondylar extension of lower end of left femur, initial encounter for closed fracture (principal); M97.12XA Periprosthetic fracture around internal prosthetic left knee joint, initial encounter; E87.0 Hyperosmolality and hypernatremia; N18.4 Chronic kidney disease, stage 4 (severe); G30.9 Alzheimer's disease, unspecified; F02.81 Dementia in other diseases classified elsewhere, unspecified severity, with behavioral disturbance; N39.0 Urinary tract infection, site not specified; D62 Acute posthemorrhagic anemia; W18.30XA Fall on same level, unspecified, initial encounter; Z96.653 Presence of artificial knee joint, bilateral; Z96.642 Presence of left artificial hip joint; I12.9 Hypertensive chronic kidney disease with stage 1 through stage 4 chronic kidney disease, or unspecified chronic kidney disease; E78.5 Hyperlipidemia, unspecified; E03.9 Hypothyroidism, unspecified; Z79.82 Long term (current) use of aspirin; Z91.81 History of falling; K59.00 Constipation, unspecified; F41.9 Anxiety disorder, unspecified; F32.9 Major depressive disorder, single episode, unspecified; B95.62 Methicillin resistant Staphylococcus aureus infection as the cause of diseases classified elsewhere
CPT/HCPCS: C1713; J0690; J1650; J2270; J3010; J7030; J7050; P9016

== ENCOUNTER → 2016-09-23 | Outpatient (CLI) | payer MEDICARE, OTHER, MEDICAID | END | disposition disaster alternative care site (69) | LOC: GAMB 09:54 | DX: S79.922A Unspecified injury of left thigh, initial encounter (principal); M79.652 Pain in left thigh; F03.90 Unspecified dementia, unspecified severity, without behavioral disturbance, psychotic disturbance, mood disturbance, and anxiety; N18.2 Chronic kidney disease, stage 2 (mild); I10 Essential (primary) hypertension; Z79.82 Long term (current) use of aspirin; Z79.899 Other long term (current) drug therapy; Z79.891 Long term (current) use of opiate analgesic; Z88.6 Allergy status to analgesic agent; Z88.1 Allergy status to other antibiotic agents; Z88.8 Allergy status to other drugs, medicaments and biological substances; W19.XXXA Unspecified fall, initial encounter | CPT/HCPCS: A0425; A0429 ==

== ENCOUNTER → 2016-09-30 | Outpatient (CLI) | payer MEDICARE, OTHER, MEDICAID | END | disposition disaster alternative care site (69) | LOC: GAMB 11:50 | DX: S79.922A Unspecified injury of left thigh, initial encounter (principal); S79.01 Salter-Harris Type I physeal fracture of upper end of femur; I10 Essential (primary) hypertension; E78.5 Hyperlipidemia, unspecified; E03.9 Hypothyroidism, unspecified; F03.90 Unspecified dementia, unspecified severity, without behavioral disturbance, psychotic disturbance, mood disturbance, and anxiety; M79.652 Pain in left thigh; Z96.642 Presence of left artificial hip joint; Z96.651 Presence of right artificial knee joint; Z96.652 Presence of left artificial knee joint; Z99.2 Dependence on renal dialysis; Z96.0 Presence of urogenital implants; Z79.82 Long term (current) use of aspirin; Z79.01 Long term (current) use of anticoagulants; Z79.891 Long term (current) use of opiate analgesic; Z79.2 Long term (current) use of antibiotics; Z88.6 Allergy status to analgesic agent; Z88.2 Allergy status to sulfonamides; Z88.8 Allergy status to other drugs, medicaments and biological substances; Z91.012 Allergy to eggs; Z91.013 Allergy to seafood | CPT/HCPCS: A0425; A0428 ==